=== PATIENT | female | born 1975 | race Caucasian/White ===

== ENCOUNTER 2021-06-26 17:29 | Emergency (ER) | payer BC ==
[~2021-06-26 17:29] MED LIST: ASPIRIN CHEWABL81 MG PO; CATAPRES 0.1MG0.1 MG PO; CONTRAVE ER 8-1 EACH PO; CVS SENNA PLUS1 EACH PO; FLONASE 0.05% N16 GM; GLUCOPHAGE 500500 MG PO; GLUCOPHAGE500 MG PO; IMDUR ER TAB 6060 MG PO; LEVOCETIRIZINE D5 MG PO; LIPITOR TAB 2020 MG PO; LISINOPRIL-HCT1 EACH PO; LOPRESSOR 25 MG25 MG PO; NEURONTIN 300300 MG PO; OMEPRAZOLE20 M1 PO; SYNTHROID125 MCG PO; TYLENOL 325MG325 MG PO; VENTOLIN HFA 66.7 GM INH; WELLBUTRIN SR150 M1 PO
== END 2021-06-26 18:07 | disposition home or self-care (01) ==
LOC: ER1 17:29
DX: Z53.21 Procedure and treatment not carried out due to patient leaving prior to being seen by health care provider (principal)